=== PATIENT | male | born 1950 | race Caucasian/White ===

== ENCOUNTER 2019-06-19 18:11 | Emergency (ER) | payer MEDICARE, OTHER ==
[~2019-06-19] VITALS: Ht 182.9 cm; Wt 113.9 kg
[2019-06-19] MEDS ORDERED: FUROSEMIDE 40 MG/4 ML VIAL ONE (18:17)
--- NOTE | 2019-06-19 18:23 | NUR ---
[id number] FRM HOME, FOUND AND IN BED, SOB. FACIAL SWELLING NOTED. PT ON CPAP EMAIL MARKETING INTERN. WAS GIVEN NITRO X 6 EMAIL MARKETING INTERN. PT TACHYPNEIC, PLACED ON SALES DEVELOPMENT SPECIALIST. DR. JOHANSEN @ BS FOR EVAL. RT @ BS CONVERTED PT TO BIPAP. WILL CONT TO MONITOR. MEDICATED ORDERED, PT RAKAN WELL. WILL CONT TO MONITOR.
[2019-06-19] MEDS ORDERED: diphenhydrAMINE HCL 50 MG/ML VIAL ONE (18:26)
[2019-06-19] MEDS ORDERED: FAMOTIDINE/PF INJ 20 MG/2 ML VIAL IV ONE ×2 (18:26→18:30)
[2019-06-19] MEDS ORDERED: methylPREDNISolone SOD SUCC 125 MG/2ML VIAL ONE (18:26)
[2019-06-19] MEDS ORDERED: EPINEPHRINE (1:1000) 1 MG/ML AMPUL ONE (18:26)
[2019-06-19] MEDS ORDERED: EPINEPHRINE (1:1000) MDV 30 MG/30ML VIAL SUBCUT ONE (18:30)
[2019-06-19] MEDS ORDERED: FUROSEMIDE 40 MG/4 ML VIAL IV ONE (18:30)
[2019-06-19] MEDS ORDERED: diphenhydrAMINE HCL 50 MG/ML VIAL IV ONE (18:30)
[2019-06-19] MEDS ORDERED: methylPREDNISolone SOD SUCC 125 MG/2ML VIAL IV ONE (18:30)
[2019-06-19 18:43] LABS: BASOPHILS # (AUTO) 0.1 /CMM (0.0-0.2); BASOPHILS % (AUTO) 0.7 % (0.0-2.0); EOSINOPHILS % (AUTO) 1.5 % (0.0-6.0); HEMATOCRIT 51 % (39-51); HEMOGLOBIN 16.2 g/dL (13.5-17.5); LYMPHOCYTES % (AUTO) 12.1 % (20.0-44.0); MEAN CORPUSCULAR HGB CONC 32 g/dl (31.0-36.0); MEAN CORPUSCULAR VOLUME 79 fL (80-96); MONOCYTES # (AUTO) 0.3 /CMM (0.1-1.30); NEUTROPHILS # (AUTO) 6.5 /CMM (1.8-8.9); NEUTROPHILS % (AUTO) 81.7 % (43.0-81.0); PLATELET COUNT (AUTO) 300 /CMM (150-450); RED BLOOD CELL COUNT(AUTO) 6.44 MIL/uL (4.5-6.0); WHITE BLOOD COUNT (AUTO) 7.9 K/uL (4.3-11.0)
--- NOTE | 2019-06-19 18:45 | NUR ---
RT RECD PT ON SON CPAP PLACED PT ON BIPAP PER MD ON FOLLOWING SETTING 13/11 RR14 100% RAKAN WELL WILL CONT TO MONITOR ALARMS ON AND AUDIBLE BAG AND MASK AT HOB Addendum: 06/19/19 at 1846 by LORENZA GUADALUPE RT Amended: Links added.
[2019-06-19 19:05] LABS: CREATININE 1.8 mg/dL (0.6-1.3); POTASSIUM 3.8 mmol/L (3.5-5.1)
[2019-06-19 19:16] LABS: ABG BASE EXCESS -0.3 mmol/L; ABG PCO2 43.5 mmHg (35.0-45.0); ABG PH 7.378 (7.350-7.450); ABG PO2 259.3 mmHg (75.0-100.0); AaDO2 410.2 mmHg; COHb 0.5 % (0.5-1.5); MetHb 0.3 % (0.0-1.5); O2Hb 98.2 % (94.0-97.0); SITE, ABG Right Radial
[2019-06-19 19:18] LABS: ALBUMIN 2.8 g/dL (3.4-5.0); BILIRUBIN,DIRECT 0.2 mg/dL (0.0-0.2); BILIRUBIN,TOTAL 0.7 mg/dL (0.2-1.0); TOTAL PROTEIN, SERUM 7.7 g/dL (6.4-8.2)
--- NOTE | 2019-06-19 19:20 | NUR ---
PT EYES CLOSED BUT ABLE TO ANSWER YES/NO. FACIAL SWELLING IMPROVED, MD AWARE. @ BS & WILL CONT TO MONITOR.
--- NOTE | 2019-06-19 19:53 | NUR ---
DR. JOHANSEN ON THE PHONE WITH ONCALL CHOPPED STRAND OPERATOR, DR. AMOR
--- NOTE | 2019-06-19 20:08 | NUR ---
CALLED [facility] TRANSFER LINE, WILL FAX CLINICAL INFORMATION
[2019-06-19] MEDS ORDERED: ALBUMIN 25% 50 ML IV ONE ×2 (20:15→20:19)
--- NOTE | 2019-06-19 20:28 | NUR ---
MD AWARE PT'S BP. STARTED ALBUMIN IV, PT RAKAN WELL. WILL CONT TO MONITOR.
[2019-06-19] MEDS ORDERED: ALBUMIN 25% 12.5 GM/50 ML BOTTLE IV ONE (20:30)
--- NOTE | 2019-06-19 20:47 | NUR ---
PER [facility], NUCLEAR POWERPLANT SUPERVISOR PAGED. WILL CALL US BACK FOR MD TO
--- NOTE | 2019-06-19 20:51 | NUR ---
PT ASLEEP, ABLE TO OPEN RT EYE & ABLE TO ANSWER YES OR NO QUESTION @ THIS TIME. DENIES ANY DISCOMFORT. WILL CONT TO MONITOR.
--- NOTE | 2019-06-19 20:53 | NUR ---
DR. JOHANSEN [facility] LUBRICATING SPECIALIST
[2019-06-19] MEDS ORDERED: HEPARIN INFUSION/D5W 500 ML IV PRN (21:00)
[2019-06-19] MEDS ORDERED: ASPIRIN EC 81 MG TABLET.DR PO ONE (21:00)
--- NOTE | 2019-06-19 21:02 | NUR ---
PER [place] RECOMMENDATION. TAKE PT OFF BIPAP AND PLACE ON 4L NC. THEY WILL CALL BACK IN 1-1.5HR
[2019-06-19] MEDS ORDERED: ASPIRIN 81 MG TAB.CHEW ONE (21:07)
--- NOTE | 2019-06-19 21:09 | NUR ---
FAMILY REQUESTING TO BE SENT TO [facility]. ATTEMPTED TO CONACT PT'S PMD (DR. Mary [phone]) LEFT MESSAGE TO RETURN CALL
[2019-06-19] MEDS ORDERED: HEPARIN INFUSION/D5W 500 ML IV ONE (21:12)
--- NOTE | 2019-06-19 21:12 | NUR ---
CALLED [facility], NO BED AVAILABLE AT THIS TIME
[2019-06-19] MEDS ORDERED: HEPARIN SODIUM, PORCINE 5000 UNITS/1 ML VIAL ONE ×2 (21:13→21:20)
--- NOTE | 2019-06-19 21:30 | NUR ---
ADDENDUM: Intravenous End Time Documentation: Heparin Infusion (25,000/D5W 500 ml)- running at 24 mls/ hours IV PORT: RAC PIV # 20; port # 1 Start time: 0 PM End time: 06/20/2019 (0244 AM) - infusing at 24 ml/hour while transfer to [facility]
--- NOTE | 2019-06-19 21:30 | NUR ---
GIVEN 8000 UNITS OF HEPARIN BOLUS PER DR. JOHANSEN'S VERBAL ORDER. PT RAKAN WELL.
--- NOTE | 2019-06-19 21:45 | NUR ---
PT AWAKE ALERT ABLE TO OPEN BOTH EYES & ABLE TO SPEAK FLUENTLY. DR. JOHANSEN DC'D BIPAP & ABLE TO RAKAN 6L OF O2, SAT 94-95%. DENIES CP, SOB, DIZZINESS, N/V @ THIS TIME. WILL CONT TO MONITOR.
--- NOTE | 2019-06-19 22:40 | NUR ---
CALLED [facility] AND UPDATED CLINICAL INFORMATION. THEY WILL CALL BACK WITH TRANSFER INFORMATION
--- NOTE | 2019-06-20 00:07 | NUR ---
CALLED [facility], STILL WAITING FOR BED ASSIGNMENT
--- NOTE | 2019-06-20 00:32 | NUR ---
TRANSFER INFORMATION: PT WILL BE TRANSFERRED TO [facility] ACCEPTING MD: DR. COHN NUMBER FOR REPORT: [phone] EXT [id number] BED ASSIGNMENT: [id number]
--- NOTE | 2019-06-20 00:40 | NUR ---
CALLED [facility] FOR [facility] TRANSPORTATION, ETA [phone]
--- NOTE | 2019-06-20 00:51 | NUR ---
ATTEMPTED TO CONTACT AIDE, [facility], [facility] FOR SOONER ETA, NO [facility]ES AVAILABLE AT THIS TIME.
--- NOTE | 2019-06-20 00:57 | NUR ---
[facility] () CONTACT INFORMATION: [phone]
--- NOTE | 2019-06-20 01:19 | NUR ---
PER [facility] TRANSFER [place], ABLE TO SET UP TRANSPORTATION WITH [facility] ETA [phone]
--- NOTE | 2019-06-20 01:48 | NUR ---
GAVE REPORT TO TONEY MADDEN FROM [facility] FOR [place]
[2019-06-20] MEDS ORDERED: ROSU40TA PO (02:15)
[2019-06-20] MEDS ORDERED: HYDR12.55 PO (02:15)
[2019-06-20] MEDS ORDERED: ZOLP10TA6 PO (02:15)
[2019-06-20] MEDS ORDERED: CLOP75TA15 PO (02:15)
[2019-06-20] MEDS ORDERED: ASPI-1169 PO (02:15)
[2019-06-20] MEDS ORDERED: PROP10TA10 PO (02:15)
[2019-06-20] MEDS ORDERED: DESV50TA PO (02:15)
--- NOTE | 2019-06-20 02:43 | NUR ---
GAVE REPORT TO [facility] FOR [facility]SPORTATION [place]. PT TRANSFERRED TO [facility] S[facility]. VITAL SIGNS STABLE. NO ACUTE DISTRESS NOTED AT THIS TIME. AT BEDSIDE.
[2019-06-20 02:44] VITALS: BP 110/42
== END 2019-06-20 03:04 | disposition short-term general hospital (02) ==
LOC: ER 18:12 → EDBD 18:12 → ER 06-20 03:04
DX: I21.4 Non-ST elevation (NSTEMI) myocardial infarction (principal); I50.9 Heart failure, unspecified; J96.00 Acute respiratory failure, unspecified whether with hypoxia or hypercapnia; R60.0 Localized edema; R00.0 Tachycardia, unspecified; E66.9 Obesity, unspecified; Z68.34 Body mass index [BMI] 34.0-34.9, adult
CPT/HCPCS: 36415; 36600 ×2; 51702; 71045; 80048; 80076; 82803; 83880; 84484 ×2; 85025; 85730; 87081; 93005 ×3; 94660; 96365; 96366; 96372; 96375; 99291; J0171 ×2; J1200; J1644 ×3; J1940; J2930; J3490; P9047 ×2